=== PATIENT | female | born 1965 | race Caucasian/White ===

== ENCOUNTER 2016-12-31 04:32 | Emergency (ER) | payer OTHER ==
[~2016-12-31] VITALS: Ht 162.6 cm; Wt 109.1 kg
[~2016-12-31 04:32] MED LIST: ATOR20TA PO; AZIT250T4 PO; HYDR12.5 PO; LEVO50TA6 PO; LISI-571 PO
[2016-12-31 04:40] VITALS: BP 140/94; PULSE 87; RESP 16; O2SAT 98
--- NOTE | 2016-12-31 04:41 | ED.REPORT ---
HPI-General Illness Date of Service Dec 31, 2016 ED Provider: Marco Antonio Darby MD The patient is a 51 year old female who presents to the ED due to a non- productive cough increasing in severity over the past 3 days. This symptom was preceded by severe sore throat, that appears to be improving. She had some associated sensation of feeling shaky, but no overt fever or chills. Denies nausea vomiting, diarrhea, abdominal pain, and chest pain. Nursing Notes Stated Complaint: COUGH Chief Complaint: Respiratory Complaints Nursing Notes Reviewed: Yes Allergies: Coded Allergies: Cephalosporins (Verified Adverse Reaction, Mild, RASH, 10/13/15) Scheduled Atorvastatin (Lipitor) 20 Mg Tablet 20 MG PO HS Azithromycin (Zithromax (Z-Ab)) 250 Mg Tablet 250 MG PO DIRECTED Take two tablets by mouth on day 1, then take one tablet daily on days 2 through 5. Hydrochlorothiazide (Hydrochlorothiazide) 12.5 Mg Capsule 12.5 MG PO DAILY Levothyroxine (Levothyroxine) 50 Mcg Tablet 50 MCG PO DAILY Lisinopril (Lisinopril) 5 Mg Tablet 5 MG PO DAILY Lisinopril (Lisinopril) 5 Mg Tablet 10 MG PO BID Scheduled PRN Benzonatate (Benzonatate) 200 Mg Capsule 200 MG PO TID PRN PRN For Cough General Time Seen by MD: 04:41 Chief Complaint Cough Hx Obtained From: Patient Arrived By: Walk-in Sudden in Onset?: Yes Onset Occurred: 3 days ago Symptom Duration: Since onset Recent Healthcare: No recent hospitalization Similar Sx Previous: No Past Medical History Past Medical History Notes: PCP: Laura Orr Past Medical History One kidney Hypothyroid Reports: Hyperlipidemia, Hypertension Past Surgical History VENTRAL HERNIA SURG 10 YRS AGO Family History Family hx: Ca Mother: brain aneurism (fatal in 60's) Father: Alzheimer's, HTN Brother: HTN Smoking History Never Smoker Social History Alcohol Use: Denies alcohol use Drug Use: Denies drug use Other Social History: Good social support, Ambulatory Status Independent Review of Systems Full Review of Systems Constitutional: Denies: Fever Ears / Nose / Throat: Reports: Sore throat Respiratory: Reports: Non-productive cough Neurologic: Reports: Shaking Complete sys rev & neg: except as marked. Physical Exam Vital Signs Vital Signs Date Time Temp Pulse Resp B/P Pulse Ox O2 Delivery O2 Flow Rate FiO2 12/31/16 06:28 36.9 80 14 127/76 99 Room Air 12/31/16 06:05 85 15 137/83 97 Room Air 12/31/16 05:19 94 18 98 Room Air 12/31/16 04:40 37.1 87 16 140/94 98 Room Air Initial VS: Reviewed Head / Eyes: Atraumatic, Normocephalic, PERRL ENT: Mucous membranes moist Respiratory: Breath sounds normal, Clear to auscultation, No respiratory distress Abdomen / GI: Soft, Non-tender, No guarding, No rebound, No distention Extremities: Vascular intact, Neuro intact, No swelling, No tenderness Neurologic: Alert, Oriented Psychiatric: Mood/affect normal, Behavior normal General/Constitutional: Awake, Alert, Cooperative Cardiovascular: Regular rhythm, Heart sounds NL Heart Rate / Rhythm: Positive: Tachycardia Interpretation & Diagnostics Lab Results Interpretation Result Diagram: 12/31/16 0510 12/31/16 0510 Test 12/31/16 05:10 12/31/16 05:50 White Blood Count 6.7th/mm3 (3.8-10.1) Red Blood Count 4.64mil/mm3 (3.90-5.20) Hemoglobin 13.2g/dL (12.0-15.6) Hematocrit 41.8% (35.0-46.0) Mean Corpuscular Volume 90.1fL (81-100) Mean Corpuscular Hemoglobin 28.4pg (27.0-35.0) Mean Corpuscular Hemoglobin Concent 31.6% (32.0-37.0) Red Cell Distribution Width 13.0% (12.3-15.4) Platelet Count 285bil/L (150-400) Neutrophils (%) (Auto) 57.0% (40-74) Lymphocytes (%) (Auto) 31.1% (14-46) Monocytes (%) (Auto) 9.1% (4-12) Eosinophils (%) (Auto) 2.1% (0-5) Basophils (%) (Auto) 0.6% (0-3) Prothrombin Time 9.4sec (8.1-12.5) Prothromb Time International Ratio 0.88ratio D-Dimer < 0.50mg/L FEU (<0.50) Sodium Level 140mEq/L (134-144) Potassium Level 3.7mEq/L (3.5-5.2) Chloride Level 101mEq/L (97-108) Carbon Dioxide Level 25mmol/L (18-29) Blood Urea Nitrogen 16mg/dL (6-24) Creatinine 0.96mg/dL (0.57-1.00) Estimat Glomerular Filtration Rate 87mL/min (>59) Glucose Level 113mg/dL (60-99) Calcium Level 9.6mg/dL (8.5-10.1) Magnesium Level 1.8mg/dL (1.6-2.6) Total Bilirubin 0.5mg/dL (0.0-1.2) Aspartate Amino Transf (AST/SGOT) 25U/L (0-50) Alanine Aminotransferase (ALT/SGPT) 14U/L (0-32) Alkaline Phosphatase 81U/L (25-150) Pro-B-Type Natriuretic Peptide 22.50pg/mL (0-249) Total Protein 7.7g/dL (6.4-8.4) Albumin 4.4g/dL (3.4-5.0) Procalcitonin 0.08ng/mL (0.00-0.08) Urine Color Yellow (YELLOW) Urine Appearance Cloudy (CLEAR,HAZY) Urine pH 6.0 (5.0-8.0) Urine Specific Wilmer 1.015 (1.003-1.035) Urine Protein Negativemg/dL (NEG,TRACE) Urine Glucose (UA) Negativemg/dL (NEGATIVE) Urine Ketones Negativemg/dL (NEGATIVE) Urine Occult Blood Negative (NEGATIVE) Urine Nitrite Negative (NEGATIVE) Urine Bilirubin Negative (NEGATIVE) Urine Urobilinogen Normalmg/dL (NORMAL) Urine Leukocyte Esterase Moderate (NEGATIVE) Urine RBC 3-10/hpf (0-2) Urine WBC 6-10/hpf (0-5) Urine Epithelial Cells Many/hpf (NONE-MOD) Urine Crystals None seen (NONE SEEN) Urine Bacteria Many/hpf (NONE-FEW) Urine Hyaline Casts None/lpf (NONE) Urine Granular Casts None seen (NONE SEEN) Urine Waxy Casts None seen (NONE SEEN) Urine Red Blood Cell Casts None seen (NONE SEEN) Urine White Blood Cell Casts None seen (NONE SEEN) Urine Mucus Present (None Seen) Urine Trichomonas None seen (NONE SEEN) Urine Yeast None (NONE SEEN) Urine Culture Reflexed Indicated ECG Interpretation Time: 05:47 Interpreted by: ED physician Normal ECG Interpretation: Normal ECG w/ rate of... (92), No change from prior ECGs X-Ray Chest Interpretation Chest Xray Interpretation: Impression: no acute findings View: Portable Interpretation / Wet Read by: Wet read ED physician Re-Eval/Medical Decision Med Decision/Clinical Course 51-year-old presents with a sore throat, a bronchospastic cough with no prior history of asthma, and apparently reactive airways disease in the setting of an acute respiratory infection. D-dimer was done due to her lack of prior history, and her persistent tachycardia, and found to be negative. She is begun with albuterol puffer and spacer for symptomatic relief, Tessalon Perles when necessary, but there is no indication for antibiotic therapy. Counseled Regarding: Diagnosis, Lab results, Need for follow-up, When/why to return to ED Discharge & Departure Primary Impression: Reactive airway disease that is not asthma Additional Impression: Upper respiratory infection Disposition: Home Discharge Condition All VS Reviewed: Yes Condition: Stable Referrals: Laura Diamond MD (PCP) Evaibe Attestation Portion of this note were transcribed by Rebeca Harvey. I, Dr. Darby, personally performed the history, physical exam, and medical decision-making: I reviewed and confirmed the accuracy for the information in the transcribed note. Signed by: north Peña, 12/31/16 0600 copies to: Laura Diamond MD, Christopher W MD Dec 31, 2016 04:41 Rebeca Harvey Dec 31, 2016 05:00
[2016-12-31] MEDS ORDERED: 0.9% Sodium Chloride 1,000 ML IV ONE (04:57)
[2016-12-31] MEDS ORDERED: Albuterol-Ipratropium 3 mL Inhalation Solution NEB ONE (05:00)
[2016-12-31] MEDS ORDERED: Albuterol 2.5 mg/3 mL Inhalation Solution NEB ONE (05:00)
[2016-12-31 05:19] VITALS: PULSE 94; RESP 18; O2SAT 98
[2016-12-31 05:19] LABS: BASOPHILS % (AUTO) 0.6 % (0-3); EOSINOPHILS % (AUTO) 2.1 % (0-5); MONOCYTES % (AUTO) 9.1 % (4-12); Mean Corpuscular Hemoglobin 28.4 pg (27.0-35.0); Mean Corpuscular Volume 90.1 fL (81-100); Platelet Count 285 bil/L (150-400)
[2016-12-31 05:35] LABS: INR 0.88 ratio
[2016-12-31 05:44] LABS: Magnesium 1.8 mg/dL (1.6-2.6)
[2016-12-31 06:05] VITALS: BP 137/83; PULSE 85; RESP 15; O2SAT 97
[2016-12-31] MEDS ORDERED: _Proair 200 Puff/8.5 GM Inhaler INHALATION PRN (06:05)
[2016-12-31] MEDS ORDERED: Dexamethasone 20 mg/2 mL Oral Solution PO ONE (06:05)
[2016-12-31] MEDS ORDERED: BENZ200C44 PO (06:07)
[2016-12-31 06:17] LABS: APPEARANCE,URINE CLOUDY (CLEAR,HAZY); COLOR,URINE YELLOW (YELLOW); OCCULT BLOOD,URINE NEGATIVE (NEGATIVE); UROBILINOGEN,URINE NORMAL (NORMAL)
[2016-12-31 06:28] VITALS: BP 127/76; PULSE 80; RESP 14; O2SAT 99
--- NOTE | 2016-12-31 09:22 | DRSVH ---
PROCEDURE: X-RAY CHEST, TWO VIEWS ([id number]) INDICATIONS: cough TECHNIQUE: 2 views of the chest were acquired. COMPARISON: [facility], CR, XR CHEST 2VW, 09/14/2016, 16:25. FINDINGS: Surgical changes and devices: Cholecystectomy clips. Clip projects anterior to the thoracic IVC in th e lateral view which cannot be definitively localized without visualization in an orthogonal plane.. Lungs and pleura: No pleural effusions or pneumothorax. Lungs are clear. Mediastinum: Mediastinal contours are normal. Heart size is normal. Bones and chest wall: No suspicious bony abnormalities. Soft tissues appear unremarkable. IMPRESSION: No acute cardiopulmonary disease process. Dictated by: Brinda Frias MD, PhD on 12/31/2016 at 9:18 Approved by: Brinda Frias MD, PhD on 12/31/2016 at 9:19
== END 2016-12-31 06:07 | disposition home or self-care (01) ==
LOC: SED 04:32
DX: J98.9 Respiratory disorder, unspecified (principal); J06.9 Acute upper respiratory infection, unspecified; I10 Essential (primary) hypertension; E78.5 Hyperlipidemia, unspecified; Z79.899 Other long term (current) drug therapy; Z88.1 Allergy status to other antibiotic agents
CPT/HCPCS: 36415; 71020; 80053; 81000; 83735; 83880; 84145; 85025; 85378; 85610; 87040; 87086; 87088; 93005; 94664; 96360; 99285; J7030; J7613; J7620

== ENCOUNTER 2017-02-11 08:43 | Observation (INO) | payer OTHER ==
[~2017-02-11] VITALS: Ht 162.6 cm; Wt 110.4 kg
[~2017-02-11 08:43] MED LIST changes: +BENZ200C44 PO
--- NOTE | 2017-02-11 08:49 | ED.REPORT ---
HPI-Stroke / CVA Feb 11, 2017 ED Provider: Dr. Garibay Pt is a 51 year old female with a history of HTN and hyperlipidemia who presents to the ED complaining of altered vision. At 08:15 this morning, the pt woke up with distorted vision, which she describes as "Jennifer-like" because her vision was "broken up" and that she had "Polywog, or sperm-like" trails on the sides of her vision.The visual changes stopped when she got into the car to come to the ED. She denies headache, migraines, aphasia, dysphasia, trouble walking, leaning to one side, confusion, numbness, or any other symptoms. She took her blood pressure (150/110) and took her usual medications (Lisinopril , thyroxine, aspirin, and HCTZ) this morning. She has had the "Jennifer-like" visual symptoms once before. Nursing Notes Stated Complaint: BLUR VISION,HIGH BP Nursing Notes Reviewed: Yes Allergies: Coded Allergies: latex (Verified Allergy, Unknown, Rash, 02/11/17) burning to skin, contact area gets red and swollen Cephalosporins (Verified Adverse Reaction, Mild, RASH, 10/13/15) Scheduled ([ProCap energy]) 1 TAB PO DAILY (Reported) Atorvastatin (Lipitor) 20 Mg Tablet 20 MG PO HS (Reported) Cholecalciferol (Vitamin D3) (Vitamin D3) 5,000 Unit Capsule 5,000 UNIT PO DAILY (Reported) Hydrochlorothiazide (Hydrochlorothiazide) 12.5 Mg Tablet 12.5 MG PO DAILY ( Reported) Levothyroxine (Levothyroxine) 50 Mcg Tablet 50 MCG PO DAILY (Reported) Lisinopril (Lisinopril) 10 Mg Tablet 10 MG PO DAILY (Reported) Multivitamin (Multivitamins) 1 Each Capsule 1 EACH PO DAILY (Reported) General Time Seen by Provider: 09:00 Chief Complaint Other (Vision changes) Hx Obtained From: Patient Arrived By: Walk-in Time last known well Unknown- awoke with symptoms. Sudden in Onset?: No Symptom Duration: Since onset Progression Since Onset: Resolved Severity: Current: No pain currently Severity: Maximum: No pain Recent Healthcare: No recent doctor visit, No recent hospitalization Similar Sx Previous: No Risk Factors TPA was not administered due to a stroke scale score of 0. )( TPA Administration/Criteria Stroke Thrombolytic Therapy : TPA Considered: Yes TPA Administered Intravenously: No, not indicated )( CVA Risk Stratification Hyperlipidemia HypertensionNo Age >60, No Diabetes mellitus, No Prior CVA/TIA, No Smoking Risk factors reviewed (focused symptoms, symptoms now completely resolved, not TPA candidate) Past Medical History Past Medical History Notes: PCP: Laura Orr Past Medical History One kidney Hypothyroid Anxiety Pneumonia Bronchitis Claustrophobia Reports: Hyperlipidemia, Hypertension, Denies: Diabetes mellitus, Stroke Past Surgical History VENTRAL HERNIA SURG 10 YRS AGO Renal surgery Ablation Reports: Tubal ligation Family History Family hx: Ca Mother: brain aneurysm (fatal at 70) Father: Alzheimer's, HTN Brother: HTN Smoking History Never Smoker Social History Her mom at 70 from a brain aneurysm Her dad in October Alcohol Use: Denies alcohol use Drug Use: Denies drug use Other Social History: Good social support, Ambulatory Status Independent Review of Systems Review of Systems Note: On additional questioning she does note that she has had an odd sensation in the left side of her neck intermittently over the past few weeks. Had not thought much of this until further question today. While in the emergency room she is somewhat concerned that her throat feels different and describes a "different" feeling completely Denies Migraines. Denies leaning to one side. Denies dysphasia Constitutional: Denies: Chills Respiratory: Denies: Non-productive cough GI: Denies: Diarrhea, Nausea, Vomiting Neurologic: Reports: Vision change, Denies: Confusion, Headache, Numbness, Problem walking, Unable to speak Complete sys rev & neg: except as marked. Physical Exam Initial Vital Signs Vital Signs (First) Date Time Temp Pulse Resp B/P Pulse Ox O2 Delivery O2 Flow Rate FiO2 02/11/17 08:51 35.9 82 15 153/83 100 Room Air Initial VS: Reviewed Abdomen / GI: Soft Extremities: Vascular intact, Neuro intact Skin: Warm, Dry, No cyanosis Psychiatric: Mood/affect normal, Behavior normal General/Constitutional: Awake, Alert, Cooperative, Not toxic appearing Head / Eyes: Atraumatic, Normocephalic Neck: Atraumatic, Full range of motion Respiratory / Chest: Atraumatic, Breath sounds NL, Breath sounds = bilat Cardiovascular: Heart rate NL, Regular rhythm, Heart sounds NL Neurologic: Oriented X3, Speech NL, CN II - XII intact No confusion. No obvious neurologic deficits. No aphasia. Moving all 4 extremities Interpretation & Diagnostics Lab Results Interpretation Result Diagram: 02/11/17 0915 02/11/17 0915 Test 02/11/17 09:15 White Blood Count 7.2th/mm3 (3.8-10.1) Red Blood Count 4.11mil/mm3 (3.90-5.20) Hemoglobin 11.9g/dL (12.0-15.6) Hematocrit 36.3% (35.0-46.0) Mean Corpuscular Volume 88.3fL (81-100) Mean Corpuscular Hemoglobin 29.0pg (27.0-35.0) Mean Corpuscular Hemoglobin Concent 32.8% (32.0-37.0) Red Cell Distribution Width 13.1% (12.3-15.4) Platelet Count 280bil/L (150-400) Neutrophils (%) (Auto) 51.6% (40-74) Lymphocytes (%) (Auto) 38.6% (14-46) Monocytes (%) (Auto) 6.8% (4-12) Eosinophils (%) (Auto) 2.6% (0-5) Basophils (%) (Auto) 0.4% (0-3) Sodium Level 141mEq/L (134-144) Potassium Level 3.8mEq/L (3.5-5.2) Chloride Level 102mEq/L (97-108) Carbon Dioxide Level 26mmol/L (18-29) Blood Urea Nitrogen 18mg/dL (6-24) Creatinine 0.85mg/dL (0.57-1.00) Estimat Glomerular Filtration Rate 100mL/min (>59) Glucose Level 101mg/dL (60-99) Calcium Level 9.4mg/dL (8.5-10.1) Total Bilirubin 0.6mg/dL (0.0-1.2) Aspartate Amino Transf (AST/SGOT) 19U/L (0-50) Alanine Aminotransferase (ALT/SGPT) 12U/L (0-32) Alkaline Phosphatase 72U/L (25-150) Total Protein 6.8g/dL (6.4-8.4) Albumin 3.7g/dL (3.4-5.0) Hold Bell Top Tube Received (Received) ECG Interpretation ECG Interpretation: Sinus rhythm with a rate of 64. Similar to 12/31/16. Time: 09:36 Interpreted by: ED physician CT Head Interpretation IMPRESSION: Normal examination. Dictated by: Dagoberto Lamas M.D. on 02/11/2017 at 9:39 Study: Head CT no contrast Interpretation / Wet Read by: Interpret - Radiologist Re-Eval/Medical Decision Med Decision/Clinical Course 51-year-old woman presents with a transient visual changes concerned she is having a stroke. No overt signs of abnormalities when she has arrived in the emergency room and she did awake with symptoms. On ED swallow eval she is concerned that she is having a bit of swallowing difficulty. In addition, she is somewhat tearful and anxious describes multiple life stressors. Suggested that she speak with her primary care doctor about a diagnosis of depression as a unifying diagnosis for all of her symptoms. In the meantime will give her 0.5 mg of Ativan and will also arrange for 5 mg of IV Valium prior to her MRI study Source of Hx: Old records Re-Evaluation/Progress : Time of Eval: 10:22 )( Re-Eval Neurologic Exam: Alert, Oriented X3, Speech normal Patient Status: Condition improved Re-Evaluation/Progress Note: Pt rechecked. Pt reports that she feels anxious and that she feels "a little bit strange". When given the option of admission for observation and workup or discharge and close follow up with pcp, patient states "I do no feel comfortable going home". She also reports her swallowing feels "different". Informed pt of plan for admission. Pt understands and agrees with plan for admission. All questions addressed. NIH Stroke Scale : Level of Consciousness: Alert and responsive (0) Ask Month & Age: Both questions right (0) Open/Close Eyes/Hand Securities Counselor: Performs both tasks (0) Horizontal EO Movements: None (0) Visual Mendes: No visual loss (0) Facial Palsy: Normal symmetry (0) Right Arm Motor Drift (10s): No drift 10 sec (0) Left Arm Motor Drift (10s): No drift 10 sec (0) Right Leg Motor Drift (5s): No drift 5 sec (0) Left Leg Motor Drift (5s): No drift 5 sec (0) Limb Ataxia FNF/Heel-Goins: No ataxia (0) Sensation (Arms/Legs/Face): No sensory loss (0) Language Aphasia: No aphasia, normal (0) Dysarthria: No dysarthria, normal (0) Extinction/Inattention: No exctinct/inattent (0) NIHSS Score: 0 Time NIHSS Performed: 10:25 Date NIHSS Performed: Feb 11, 2017 Consultation : Referral / Consult Name: Pardeep Trivedi DO Consulted With: Hospitalist Call Returned at: 11:27 Mold Sheet Cleaner: Will see patient, Agrees with eval, Agrees with plan, Accepts admit Note: Discussed patient's case. Accepts admit. Counseled Regarding: Diagnosis, Lab results, Need for admission Patient Discharge & Departure Impression: Primary Impression: TIA (transient ischemic attack) Additional Impressions: High blood pressure Anxiety Disposition: ADMITTED TO HOSPITAL Discharge Condition All VS Reviewed: Yes Condition: Stable Referrals: Laura Diamond MD (PCP) Evaibgaetano Attestation Portions of this note were transcribed by Facundo Alanis and Damari Davison. I, Dr. Garibay personally performed the history, physical exam and medical decision-making; I reviewed and confirmed the accuracy of the information in the transcribed note. Signed by: Facundo Alanis and Naveen Granda, 02/11/17 and 11:30 copies to: Laura Diamond MD, Shawna L MD Feb 11, 2017 08:49 Damari Humphries Feb 11, 2017 09:29 FACUNDO ALANIS Feb 11, 2017 09:46
[2017-02-11 08:51] VITALS: BP 153/83; PULSE 82; RESP 15; O2SAT 100
--- NOTE | 2017-02-11 09:41 | DRSVH ---
PROCEDURE: CT BRAIN WITHOUT CONTRAST ([id number]) INDICATIONS: Stroke TECHNIQUE: Noncontrast 4.5 mm thick angled axial sections acquired from the foramen magnum to the vertex, with c oronal reformats. COMPARISON: [facility] , CT, BRAIN W/O CONTRAST, 02/15/2009, 11:21. FINDINGS: Image quality: Excellent. CSF spaces: Basal cisterns are patent. No extra-axial fluid collections. Ventricles are normal in size and shape. Brain: No midline shift. No intracranial masses or hemorrhage. Crawford-white matter interface is norm al. Skull and face: Calvarium and visualized facial bones are intact, without suspicious lesions. Sinuses: Visualized sinuses and mastoids are clear. IMPRESSION: Normal examination. Dictated by: Dagoberto Lamas M.D. on 02/11/2017 at 9:39 Approved by: Dagoberto Lamas M.D. on 02/11/2017 at 9:39
[2017-02-11 09:51] LABS: BASOPHILS % (AUTO) 0.4 % (0-3); EOSINOPHILS % (AUTO) 2.6 % (0-5); MONOCYTES % (AUTO) 6.8 % (4-12); Mean Corpuscular Volume 88.3 fL (81-100); NEUTROPHILS % (AUTO) 51.6 % (40-74); Platelet Count 280 bil/L (150-400)
[2017-02-11] MEDS ORDERED: LORazepam 0.5 mg Tablet PO ONE (10:50)
[2017-02-11] MEDS ORDERED: 0.9% Sodium Chloride 1,000 ML IV SCH (10:50)
[2017-02-11] MEDS ORDERED: HYDR12.55 PO (10:55)
[2017-02-11] MEDS ORDERED: LISI10TA PO (10:57)
[2017-02-11] MEDS ORDERED: CHOL5000 PO (11:05)
[2017-02-11] MEDS ORDERED: [UNRECOGNIZED DRUG - OTHER] PO (11:08)
[2017-02-11] MEDS ORDERED: MULT1CAP33 PO (11:08)
[2017-02-11] MEDS ORDERED: Ondansetron 2 mg/mL 2 mL Inj IVPUSH PRN (11:25)
[2017-02-11] MEDS ORDERED: HYDROcodone-APAP 5-325 mg Tablet PO PRN (11:25)
[2017-02-11] MEDS ORDERED: Labetalol 5 mg/mL 4 mL Inj IVPUSH PRN (11:25)
[2017-02-11] MEDS ORDERED: Polyethylene Glycol (PEG) 17 Gm Powder PO PRN (11:25)
[2017-02-11] MEDS ORDERED: Alum-Mag Hydrox-Simeth 30 mL Suspension PO PRN (11:25)
--- NOTE | 2017-02-11 11:32 | PCM.HPMED ---
Subjective Date of Service Feb 11, 2017 Primary Provider: Admitting Physician: Pardeep Trivedi DO Primary Care Physician: Laura Diamond MD Attending Physician: Pardeep Trivedi DO Chief Complaint: Acute vision changes History of Present Illness: The patient is a 51-year-old female past medical history is negative for hypertension hyperlipidemia, strong family history of stroke, presenting to the emergency department for visual changes noted early this morning when awakening. Dates are visual distortions on the lateral aspects of both sides of her visual ridley, states images became almost cost so light and broken up, and she had a difficult time focusing. She experienced no pain or dizziness that time, also noted no slurred speech or weakness, but she did experience a transient numbness or tingling in her right foot which had essentially resolved by her time of presentation to emergency department. She is never noted experiencing anything exactly like this before, but has noted more mild vision changes in the past on a couple of occasions. She denies any sweats or chills. Does note chronic tightness in her neck on the left side exacerbated with motion. She denies any nausea or vomiting any time, though she has not eaten since morning and is very hungry at this point. She also denies any palpitations or shortness of breath. He has noted no fever chills at home. Additionally taking her blood pressure at the time of the incident, found to be elevated from her baseline at approximately 150/110. Next number medications for blood pressure lipids but admits she has difficulty with compliance, specially of her statin which she takes at night and all her medications in the morning. By the time of my evaluation patient's condition has essentially resolved. Vision had returned to normal she was experiencing no dizziness or lightheadedness, and the numbness in her right foot also resolved. Her main complaint at this time is hunger, is frustrated she is able to order a meal. Review of Systems: A 10 point review of systems was conducted and entirely negative excepting pertinent positives and negatives included above history of present illness Allergies Coded Allergies: latex (Verified Allergy, Unknown, Rash, 02/11/17) burning to skin, contact area gets red and swollen Cephalosporins (Verified Adverse Reaction, Mild, RASH, 10/13/15) Home Medications Atorvastatin (Lipitor) 20 Mg Tablet 20 MG PO HS (Reported) Azithromycin (Zithromax (Z-Ab)) 250 Mg Tablet 250 MG PO DIRECTED Take two tablets by mouth on day 1, then take one tablet daily on days 2 through 5. Hydrochlorothiazide (Hydrochlorothiazide) 12.5 Mg Capsule 12.5 MG PO DAILY ( Reported) Levothyroxine (Levothyroxine) 50 Mcg Tablet 50 MCG PO DAILY (Reported) Lisinopril (Lisinopril) 5 Mg Tablet 5 MG PO DAILY (Reported) Lisinopril (Lisinopril) 5 Mg Tablet 10 MG PO BID Scheduled PRN Benzonatate (Benzonatate) 200 Mg Capsule 200 MG PO TID PRN PRN For Cough PMH One kidney Hypothyroid Anxiety Pneumonia Bronchitis Claustrophobia Hyperlipidemia, Hypertension, Diabetes mellitus Surgical History VENTRAL HERNIA SURG 10 YRS AGO Renal surgery Ablation Tubal ligation Family History Family hx: Ca Mother: brain aneurysm (fatal at 70) Father: Alzheimer's, HTN Brother: HTN Her mom at 70 from a brain aneurysm Her dad in October Social History Hx Alcohol Use: No Hx Substance Use: No Smoking Status: Never Smoker Exam Vital Signs Vital Sign - Last Date Time Temp Pulse Resp B/P Pulse Ox O2 Delivery O2 Flow Rate FiO2 02/11/17 08:51 35.9 82 15 153/83 100 Room Air General: Alert, Oriented X3, Cooperative, No Acute Distress Eyes: PERRLA, EOMI Mouth: Mucous Membr Moist/[place] Chest & Lungs: Clear to auscultation & percussion Cardiovascular: Regular Rate/Rhythm, No Murmurs/Rubs/Gallops Abdomen: Non-tender, Non-distended, Other (Obese) Neurological: Grossly Neurologically Intact, Cranial Nerves 2-12 Intact Lab and Diagnostics Result Diagram: 02/11/1791402/11/17914 Assessment & Plan 51-year-old female complaining with unexplained neurologic findings including visual deficits and does not feeling right, and for further observation due to concern for possible TIA/CVA. 1. Patient will be admitted under Stroke protocol - MRI brain is currently ordered and pending - Carotid Dopplers also ordered and pending - She will be continued on telemetry - Neuro checks as per protocol every 4 hours - Fasting lipid panel currently ordered and pending - Continue patient home medications including aspirin and statin medication - We will allow permissive hypertension over first 24 hours with PRN medications for excessive elevation - PT/OT and speech have been consulted for further assessment. 2. Hyperlipidemia - As noted above we will continue patient's home statin medication of Lipitor 20 mg daily 3. Hypertension - Continue patient's home hypertensives, likely to be resumed tomorrow following 24-hour period of permissive hypertension 4. Mood disorder - Patient endorsed significant degree of anxiety, maybe consider further outpatient setting. - The consider initiation of SSRI would this be deferred to primary care physician Pain Evaluation: Adequate Pain Control GI Prophylaxis: Not indicated VTE Mechanical Devices: Intermittant Pneumatic CD Resuscitation Status: CPR: Attempt Resuscitation Time spent 55 minutes Pardeep Trivedi DO Feb 11, 2017 11:32 Pardeep Trivedi DO Feb 11, 2017 11:32
[2017-02-11 11:46] LABS: TROPONIN T 0.01 ug/L (0.0-0.011)
--- NOTE | 2017-02-11 12:45 | NUR ---
Ad[place] [facility]. No complains of increased pain or altered vision. VSS, A/OX3. Able to transfer self from gurney to bed. Spouse is at bedside. Oriented to , visiting hours, and call light. Will continue to monitor.
[2017-02-11] MEDS ORDERED: OMEP20CA11 PO (13:06)
[2017-02-11] MEDS ORDERED: ASPI-973 PO (13:06)
[2017-02-11 13:07] VITALS: BP 130/81; PULSE 73; RESP 18
[2017-02-11 13:13] VITALS: PULSE 73
--- NOTE | 2017-02-11 13:22 | DRSVH ---
PROCEDURE: MRI STROKE PROTOCOL ([id number]) Pre- and post-contrast brain MRI, non-contrast brain MR angiogram, pre- and postcontrast neck MR samara ogram INDICATIONS: Transient visual changes, evaluate for TIA TECHNIQUE: Brain: Noncontrast axial T1 spin echo, axial T2 fast spin echo, sagittal and axial FLAIR, coronal T2 fast spin echo, axial gradient echo, axial diffusion and ADC through the brain. After the administr ation of contrast, axial 3D VIBE of the cranial vasculature and brain. Brain MRA: Non-contrast 3-D time of flight MR angiogram, with multiple lnwieuh-yapgefepz-cggdbtapdb (MIP) reformats performed. Neck MRA: Axial and sagittal TruFISP through the neck. Coronal dynamic MR angiogram during administ ration of contrast in the arterial and venous phases, with 3-dimenstional mvdbiik-vksiznadn-dkaitivqg n (MIP) reformats constructed from subtraction images. COMPARISON: [facility], MR, MR BRAIN W&WO CON, 07/30/2015, 17:38. [facility], CT, CT BRAIN WO CON, 02/11/2017, 9:29. FINDINGS: Image quality: Excellent. BRAIN: CSF spaces: Ventricles are normal in size and shape. Basal cisterns are patent. No extra-axial flu id collections. Brain: No intracranial bleeds or mass effects. A few foci of T2/FLAIR hyperintensity are compatible with mild chronic small vessel ischemic changes. Crawford-white matter interface is normal. Diffusion w eighted images show no acute ischemic insults. Brainstem appears normal. Normal intravascular flow voids are present. No abnormal intracranial enhancement. Skull and face: Calvarial marrow signal is normal. Orbits appear normal. Sinuses: Sinuses and mastoids are clear. BRAIN MR ANGIOGRAM: Anterior circulation: Intracranial internal carotid arteries are normal in size and enhancement. Th e flow within the paired anterior cerebral arteries is normal and symmetric. The flow within the mid dle cerebral arteries is normal and symmetric. The anterior communicating artery is seen. No stenos es, occlusions, or aneurysms. Posterior circulation: The visualized portions of the vertebral arteries demonstrate normal caliber, and join to form a normal appearing basilar artery. There are origins of both posterior cereb ral arteries. The flow within the posterior cerebral arteries is normal and symmetric. No stenoses, occlusions, or aneurysms. NECK MR ANGIOGRAM: Carotids: Great vessels demonstrate a conventional anatomy as they arise from the aortic arch. The origins of the common carotid arteries appear patent. The calibers and courses of both common caroti d arteries are normal. The bifurcation regions appear normal bilaterally. The internal carotid roberta damaris demonstrate normal course and caliber. Posterior circulation: The origins of the vertebral arteries appear patent. More superior portions of both vertebral arteries demonstrate normal course and caliber, and join to form a normal appearing basilar artery. Miscellaneous: Subclavian arteries appear patent. Pre-contrast images through the neck show no soft tissue abnormalities. IMPRESSION: BRAIN MRI: 1. No acute intracranial abnormalities. 2. Mild chronic microvascular ischemic changes. BRAIN MR ANGIOGRAM: 1. Normal anterior and posterior circulations. 2. origins of both posterior cerebral arteries. NECK MR ANGIOGRAM: 1. No significant stenoses or occlusion of carotid arteries bilaterally. 2. No significant stenoses or occlusion of vertebral arteries bilaterally. The estimate of stenosis included in the report of the imaging study was calculated using the NASCET method Dictated by: Melyssa Daley M.D. on 02/11/2017 at 12:04 Approved by: Melyssa Daley M.D. on 02/11/2017 at 12:20
--- NOTE | 2017-02-11 13:31 | NUR ---
admit/med rec admission and med rec completed. patient high risk ALPHONSE. Nhi TAYLOR notified.
[2017-02-11 18:55] VITALS: BP 122/81; PULSE 106; RESP 18
--- NOTE | 2017-02-11 19:11 | DRSVH ---
PROCEDURE: US BILATERAL DUPLEX DOPPLER IMAGING OF THE CAROTIDS ([id number]) INDICATIONS: R/O Carotid Disease if no MRA or CTA Neck TECHNIQUE: Color and pulse Doppler interrogation was performed of both carotid systems, with image documentation and velocity measurements. COMPARISON: [facility], CT, CT BRAIN WO CON, 02/11/2017, 9:29. [facility] U ltrasound, US, US CAROTID DPLX DOPPLER BILAT, 11/26/2015, 16:08. FINDINGS: All stenosis calculations are based on NASCET criteria. Right side: Brachial blood pressure: 130/84 mm Hg. Common carotid artery peak systolic velocity: 90 cm/sec. Internal carotid artery peak systolic velocity: 82 cm/sec. Internal carotid artery end diastolic velocity: 21 cm/sec. External carotid artery peak systolic velocity: 101 cm/sec. ICA/CCA peak systolic ratio: 0.9. Crawford scale imaging description: No appreciable calcific or soft plaque Percent internal carotid artery stenosis: None found. Vertebral artery: Flow direction is antegrade. Left side: Brachial blood pressure: 128/84 mm Hg. Common carotid artery peak systolic velocity: 82 cm/sec. Internal carotid artery peak systolic velocity: 89 cm/sec. Internal carotid artery end diastolic velocity: 39 cm/sec. External carotid artery peak systolic velocity: 91 cm/sec. ICA/CCA peak systolic ratio: 1.1. Crawford scale imaging description: No identified calcific or soft plaque Percent internal carotid artery stenosis: None found. Vertebral artery: Flow direction is antegrade. IMPRESSION: No carotid stenosis identified, vertebral arterial flow is antegrade and normal in appea mikhail bilaterally. Dictated by: Dagoberto Lamas M.D. on 02/11/2017 at 19:06 Approved by: Dagoberto Lamas M.D. on 02/11/2017 at 19:09
[2017-02-11 20:00] VITALS: PULSE 95
[2017-02-11 21:41] LABS: APPEARANCE,URINE HAZY (CLEAR,HAZY); COLOR,URINE YELLOW (YELLOW); OCCULT BLOOD,URINE TRACE (NEGATIVE); UROBILINOGEN,URINE NORMAL (NORMAL)
[2017-02-11 21:42] LABS: YEAST,URINE MODERATE (NONE SEEN)
[2017-02-11 23:37] VITALS: BP 131/86; PULSE 82; RESP 18; O2SAT 96
[2017-02-12 05:26] VITALS: BP 128/69; PULSE 66; RESP 18; O2SAT 98
[2017-02-12] MEDS ORDERED: Pantoprazole 20 mg ER24 Tablet PO SCH (08:30)
[2017-02-12 09:01] VITALS: BP 125/81; PULSE 86; RESP 16; O2SAT 97
--- NOTE | 2017-02-12 09:50 | NUR ---
9:15am: screened pt. for OT needs. Reviewed stress mgmt techniques, deep breathing. Pt. has good safety setup at home and plan for attaining better health:gym (soon), bicycling (just purchased), eating better. No OT needs identified. DC from OT. No charge. Kadeem Yepez, OTR/L
[2017-02-12 10:50] VITALS: PULSE 88
[2017-02-12 13:07] VITALS: BP 133/93; PULSE 86; RESP 18; O2SAT 96
--- NOTE | 2017-02-12 15:52 | NUR ---
Social Work-screening/ readiness for discharge: Data:EMR reviewed. Pt is a 51 y/o female who was admitted on 02/11/17 for TIA per H&P. Pt's insurance is [employer] and PCP is Roxann Diamond MD. EMR Reviewed. Pt resides at home with her where she remains independent with ADLs. PT and OT have cleared pt for home no needs. Pt's to provide transport home at discharge. No anticipated discharge needs. SW will continue to follow if needs arise. Assessment:pt who is independent at baseline. Plan:Pt to discharge home when medically stable via POV. No anticipated discharge needs. SW will continue to follow if needs arise. MANISH Lenz
--- NOTE | 2017-02-12 16:08 | DRSVH ---
[facility] [address] [place] [address] Echocardiogram Report Name: CHRISTOS EGAN Date: Height: 64 in Hospital Exam Location: [facility] Weight: 243 lb Gender: Female BSA: 2.1 m2 : 1965 Age: 51 yrs BP: 128/ 69 mmHg Reason For Study: TIA Ordering Physician: HOSPITALIST [facility] Performed By: Salazar Pastrana Referring Physician: YUNIEL TORRES Interpretation Summary The ejection fraction is estimated to be 65-70%. There is no Doppler evidence for an atrial septal defect. A bubble study was attempted but it could not be adequately performed secondary to body habitus. There is no significant valvular heart disease. There is no obvious cardiac source of embolus noted on this transthoracic echocardiogram. Follow-up with a [facility] is suggested if cardiac source is still suspected. Procedure: A two-dimensional transthoracic echocardiogram with color flow and Doppler was performed. The study quality was technically adequate. There is no prior echocardiogram noted for this patient. A saline contrast injection was performed to assess for cardiac shunting. The patient was in normal sinus rhythm during the exam. Left Ventricle: There is normal left ventricular wall thickness. The ejection fraction is estimated to be 65-70%. Left ventricular wall motion is normal. Right Ventricle: The right ventricle grossly appears normal in size with probable normal systolic function. Atria: The left atrial size is normal. Right atrium is small. There is no Doppler evidence for an atrial septal defect. A bubble study was attempted but it could not be adequately performed secondary to body habitus. Mitral Valve: The mitral valve is grossly normal. There is no mitral regurgitation noted. Aortic Valve: The aortic valve is grossly normal. No aortic regurgitation is present. Tricuspid Valve: The tricuspid valve is not well visualized. Pulmonary artery pressures cannot be estimated because of the lack of a measurable TR jet velocity. Pulmonic Valve: The pulmonic valve is not well visualized. Great Vessels: The aortic root is normal size. The dimensions of the ascending aorta are normal. The pulmonary artery is not well visualized, but is probably normal size. The IVC is of normal diameter and collapses greater than 50% with a sniff. This suggests a low right atrial pressure of 3 mm Hg. Pericardium/ Pleura There is no pericardial effusion. There is no pleural effusion. MMode/2D Measurements & Calculations LVOT diam: 2.2 cm LA A2 area: 19.7 cm RA area: 7.7 cm2 AoV Openin.8 cm LA A4 area: 17.6 cm Ao root diam: 3.1 cm LA length (vol): 5.5 cm asc Aorta Diam: 3.0 cm LA vol: 53.8 ml Ao Arch Diam (Prox Trans): 2.6 cm LA vol index: 25.3 ml/m2 Doppler Measurements & Calculations Ao V2 max: 150.6 cm/secMV E max ruben MV E/A: 0.84 PA V2 max Ao max P.1 mmHg : 87.2 cm/sec Med Peak E' Ruben : 99.1 cm/sec Ao mean P.1 mmHg MV A max ruben PA mean PG LVOT Max Ruben : 104.0 cm/sec E/E' med: 10.1 : 2.1 mmHg : 130.7 cm/sec GEORGES(I,D): 3.4 cm sev ratio: 0.90 MV dec time: 0.22 sec Ao V2 mean LV V1 max PG PA V2 mean : 109.0 cm/sec : 70.3 cm/sec Ao V2 VTI: 30.5 cm LV V1 VTI: 27.5 cmPA pr(Accel) GEORGES(V,D): 3.2 cm2 : 27.6 mmHg GEORGES indexed to BSA (cm^2/m^2): 1.6 Electronically signed by: Rustam Howe on Reading Physician:02/12/2017 04:07 PM
--- NOTE | 2017-02-12 16:34 | PCM.DC.MED ---
Discharge Summary Date of Service Feb 12, 2017 Dates of Hospitalization Date of Hospital Admission Feb 11, 2017 at 11:24 Date of Discharge: Feb 12, 2017 Providers: Admitting Physician: Pardeep Trivedi DO Primary Care Physician: Laura Diamond MD Attending Physician: Pardeep Trivedi DO Diagnosis at Time of Discharge Diagnosis at Time of Discharge Visual changes without evidence of cerebral vascular injury, resolved Bacturia with leucocytes, possible cystitis Procedures XRay, CTs & MRIs Date of Service: 02/11/17 1047 PROCEDURE: MRI STROKE PROTOCOL ([id number]) Pre- and post-contrast brain MRI, non-contrast brain MR angiogram, pre- and postcontrast neck MR angiogram IMPRESSION: BRAIN MRI: 1. No acute intracranial abnormalities. 2. Mild chronic microvascular ischemic changes. BRAIN MR ANGIOGRAM: 1. Normal anterior and posterior circulations. 2. origins of both posterior cerebral arteries. NECK MR ANGIOGRAM: 1. No significant stenoses or occlusion of carotid arteries bilaterally. 2. No significant stenoses or occlusion of vertebral arteries bilaterally. The estimate of stenosis included in the report of the imaging study was calculated using the NASCET method Dictated by: Melyssa Daley M.D. on 02/11/2017 at 12:04 Cardiac Echo Impression Date of Service: 02/12/[address] [address] Echocardiogram Report Name: CHRISTOS EGAN Date: Height: 64 in Hospital Exam Location: [facility] Weight: 243 lb Gender: Female BSA: 2.1 m2 : 1965 Age: 51 yrs BP: 128/ 69 mmHg Reason For Study: TIA Ordering Physician: HOSPITALIST [facility] Performed By: Salazar Pastrana Referring Physician: PARDEEP TRIVEDI Interpretation Summary The ejection fraction is estimated to be 65-70%. There is no Doppler evidence for an atrial septal defect. A bubble study was attempted but it could not be adequately performed secondary to body habitus. There is no significant valvular heart disease. There is no obvious cardiac source of embolus noted on this transthoracic echocardiogram. Follow-up with a [facility] is suggested if cardiac source is still suspected. Brief History The patient is a 51-year-old female past medical history is negative for hypertension hyperlipidemia, strong family history of stroke, presenting to the emergency department for visual changes noted early this morning when awakening. Dates are visual distortions on the lateral aspects of both sides of her visual ridley, states images became almost cost so light and broken up, and she had a difficult time focusing. She experienced no pain or dizziness that time, also noted no slurred speech or weakness, but she did experience a transient numbness or tingling in her right foot which had essentially resolved by her time of presentation to emergency department. She is never noted experiencing anything exactly like this before, but has noted more mild vision changes in the past on a couple of occasions. She denies any sweats or chills. Does note chronic tightness in her neck on the left side exacerbated with motion. She denies any nausea or vomiting any time, though she has not eaten since morning and is very hungry at this point. She also denies any palpitations or shortness of breath. He has noted no fever chills at home. Additionally taking her blood pressure at the time of the incident, found to be elevated from her baseline at approximately 150/110. Next number medications for blood pressure lipids but admits she has difficulty with compliance, specially of her statin which she takes at night and all her medications in the morning. By the time of my evaluation patient's condition has essentially resolved. Vision had returned to normal she was experiencing no dizziness or lightheadedness, and the numbness in her right foot also resolved. Her main complaint at this time is hunger, is frustrated she is able to order a meal. Hospital Course 51-year-old female complaining with unexplained neurologic findings including visual deficits and does not feeling right, and for further observation due to concern for possible TIA/CVA. #. Patient will be admitted under Stroke protocol Condition resolved by day#1 of hospitalization. All evaluations reassuring including: MRI/MRA brain which demonstrated no evidence of CVA, carotid doppler demonstrating no significant stenosis, and electrocardiogram demonstrating no evidence of cardiac pathology. Pt was monitored on continuos telemetry without arrhythmia demonstrated. PT/OT/ Speech evaluations completed without concern. Pt cleared for home discharge. #Bactruia with WBC's, possible UTI. - Culture pending - Keflex considered based on result. - Will F/U tomorrow and contact patient when final result available. #. Hyperlipidemia - As noted above we will continue patient's home statin medication of Lipitor 20 mg daily #. Hypertension - Continue patient's home hypertensives, likely to be resumed tomorrow following 24-hour period of permissive hypertension - BP normalized ealry in hospitalization, no PRNB medication required. Pt DC'd on home medications. #. Mood disorder - Patient endorsed significant degree of anxiety, maybe consider further outpatient setting. - The consider initiation of SSRI would this be deferred to primary care physician Exam Vital Signs (Last) Date Time Temp Pulse Resp B/P Pulse Ox O2 Delivery O2 Flow Rate FiO2 02/12/17 13:07 36.7 86 18 133/93 96 Room Air Exam Pt stable, in no acute distress, breathing comfortable Nonfocal neurological examination Test 02/11/17 09:15 02/11/17 11:29 White Blood Count 7.2th/mm3 (3.8-10.1) Red Blood Count 4.11mil/mm3 (3.90-5.20) Hemoglobin 11.9g/dL (12.0-15.6) Hematocrit 36.3% (35.0-46.0) Mean Corpuscular Volume 88.3fL (81-100) Mean Corpuscular Hemoglobin 29.0pg (27.0-35.0) Mean Corpuscular Hemoglobin Concent 32.8% (32.0-37.0) Red Cell Distribution Width 13.1% (12.3-15.4) Platelet Count 280bil/L (150-400) Neutrophils (%) (Auto) 51.6% (40-74) Lymphocytes (%) (Auto) 38.6% (14-46) Monocytes (%) (Auto) 6.8% (4-12) Eosinophils (%) (Auto) 2.6% (0-5) Basophils (%) (Auto) 0.4% (0-3) Sodium Level 141mEq/L (134-144) Potassium Level 3.8mEq/L (3.5-5.2) Chloride Level 102mEq/L (97-108) Carbon Dioxide Level 26mmol/L (18-29) Blood Urea Nitrogen 18mg/dL (6-24) Creatinine 0.85mg/dL (0.57-1.00) Estimat Glomerular Filtration Rate 100mL/min (>59) Glucose Level 101mg/dL (60-99) Calcium Level 9.4mg/dL (8.5-10.1) Total Bilirubin 0.6mg/dL (0.0-1.2) Aspartate Amino Transf (AST/SGOT) 19U/L (0-50) Alanine Aminotransferase (ALT/SGPT) 12U/L (0-32) Alkaline Phosphatase 72U/L (25-150) Troponin T 0.010ug/L (0.0-0.011) Total Protein 6.8g/dL (6.4-8.4) Albumin 3.7g/dL (3.4-5.0) Triglycerides Level 114mg/dL (0-149) Cholesterol Level 225mg/dL (100-199) LDL Cholesterol, Calculated 140.200mg/dL (0-99) VLDL Cholesterol 22.800mg/dL HDL Cholesterol 62mg/dL (>39) Cholesterol/HDL Ratio 3.63 (0.0-4.4) Hold Bell Top Tube Received (Received) Urine Color Yellow (YELLOW) Urine Appearance Hazy (CLEAR,HAZY) Urine pH 6.0 (5.0-8.0) Urine Specific [place] 1.010 (1.003-1.035) Urine Protein Negativemg/dL (NEG,TRACE) Urine Glucose (UA) Negativemg/dL (NEGATIVE) Urine Ketones Negativemg/dL (NEGATIVE) Urine Occult Blood Trace (NEGATIVE) Urine Nitrite Negative (NEGATIVE) Urine Bilirubin Negative (NEGATIVE) Urine Urobilinogen Normalmg/dL (NORMAL) Urine Leukocyte Esterase Large (NEGATIVE) Urine RBC 0-2/hpf (0-2) Urine WBC 11-50/hpf (0-5) Urine Epithelial Cells Moderate/hpf (NONE-MOD) Urine Crystals None seen (NONE SEEN) Urine Bacteria Few/hpf (NONE-FEW) Urine Hyaline Casts None/lpf (NONE) Urine Granular Casts None seen (NONE SEEN) Urine Waxy Casts None seen (NONE SEEN) Urine Red Blood Cell Casts None seen (NONE SEEN) Urine White Blood Cell Casts None seen (NONE SEEN) Urine Mucus None seen (None Seen) Urine Trichomonas None seen (NONE SEEN) Urine Yeast Moderate (NONE SEEN) Urinalysis Comment None Urine Culture Reflexed Indicated Hold Urine Received (Received) Discharge Medications Discharge Medications ([ProCap energy]) 1 TAB PO DAILY (Reported) Aspirin (Aspirin) 81 Mg Tablet 81 MG PO DAILY (Reported) Atorvastatin (Lipitor) 20 Mg Tablet 20 MG PO HS (Reported) Cholecalciferol (Vitamin D3) (Vitamin D3) 5,000 Unit Capsule 5,000 UNIT PO DAILY (Reported) Hydrochlorothiazide (Hydrochlorothiazide) 12.5 Mg Tablet 12.5 MG PO DAILY ( Reported) Levothyroxine (Levothyroxine) 50 Mcg Tablet 50 MCG PO DAILY (Reported) Lisinopril (Lisinopril) 10 Mg Tablet 10 MG PO DAILY (Reported) Multivitamin (Multivitamins) 1 Each Capsule 1 EACH PO DAILY (Reported) Omeprazole (Omeprazole) 20 Mg Capsule.dr 20 MG PO DAILY (Reported) Followup Plan Disposition: Home in stable condition, Discharge Diet: No restrictions, Heart Healthy Discharge Activity: No restrictions Follow-up Provider: Laura Diamond MD Follow-up with PCP in: 1 week Time spent 45 minutes copies to: Laura Diamond MD, Benjamin P DO Feb 12, 2017 16:34
--- NOTE | 2017-02-12 16:38 | PCM.DIMED ---
Discharge Instructions Date of Service Feb 12, 2017 Dates of Hospitalization Feb 11, 2017 at 11:24 Discharge Diagnosis Discharge Diagnosis Visual changes without evidence of cerebral vascular injury, resolved Bacturia with leukocytes, possible cystitis;Urine culture pending. Will contact with final result. Diet Discharge Diet: No restrictions, Heart Healthy Activity Discharge Activity: No restrictions Patient Instructions Patient Instructions Follow up with primary care physician in 1 week if possible for hospital follow up and further consideration of underlying cause of visual changes. Stroke and cerebral vascular event thankfully appears unlikely. No evidence found with studies conducted in hospital. Follow-up Provider: Laura Diamond MD Follow-up with PCP in: 1 week Pardeep Trivedi DO Feb 12, 2017 16:38
--- NOTE | 2017-02-12 18:01 | NUR ---
DISCHARGE Pt discharged home this evening at 1750, off unit in w/c accompanied by and [employer]. Vital signs stable, alert and oriented and denies any pain/discomfort and in no apparent distress. IV dc'd intact, all belongings returned. All instructions for diet, activity, medications, prescriptions and follow up reviewed with patient who reports understanding.
== END 2017-02-12 17:51 | disposition home or self-care (01) ==
LOC: SED 08:43 → MPC 11:24
PROVIDERS: ADMIT Family Medicine; ATTEND Family Medicine
DX: H53.8 Other visual disturbances (principal); N39.0 Urinary tract infection, site not specified; B96.89 Other specified bacterial agents as the cause of diseases classified elsewhere; R82.71 Bacteriuria; I10 Essential (primary) hypertension; E78.5 Hyperlipidemia, unspecified; F41.9 Anxiety disorder, unspecified
CPT/HCPCS: 36415; 70450; 70549; 70553; 80053; 80061; 81000; 84484; 85025; 87086; 87088; 92610; 93005; 93880; 97161; A9585; C8929; G0378; G8978; G8979; G8990; J3360